=== PATIENT | female | born 1995 | race Caucasian/White ===

== ENCOUNTER 2021-07-07 12:27 | Emergency (ER) | payer OTHER ==
[2021-07-07] MEDS ORDERED: Zofran 4 MG/2 ML VIAL IV ONE (12:49)
[2021-07-07] MEDS ORDERED: TORAdol 30 mg Injection IV ONE (12:49)
[2021-07-07] MEDS ORDERED: Sodium Chloride 0.9% 1000 ML 1,000 ML IV STA (12:49)
[2021-07-07 12:51] VITALS: O2SAT 99
[2021-07-07] MEDS ORDERED: Zofran 4 MG/2 ML VIAL ONE (13:10)
[2021-07-07] MEDS ORDERED: Sodium Chloride 0.9% 1000 ML 1,000 ML ONE (13:11)
[2021-07-07] MEDS ORDERED: TORAdol 30 mg Injection ONE (13:11)
[2021-07-07 13:15] LABS: Absolute Neutrophil Ct (ANC) 3.75 (1.4-6.9); Basophil (Absolute #) 0.01 (0-0.4); Eosinophil % 1.9 % (0.00-5.0); Eosinophil (Absolute #) 0.11 (0-0.5); Hematocrit 41.8 % (35-47); Hemoglobin 13.6 gm/dl (12.0-16.0); Lymphocyte (Absolute #) 1.64 (1.0-4.6); Lymphocytes % 27.6 % (24.0-44.0); Mean Cell Volume 95.9 fl (78-100); Mean Corpuscular Hemoglobin 31.2 pg (26-32); Mean Corpuscular Hgb Concent. 32.5 g/dl (32-36); Mean Platelet Volume 11.4 fl (7.5-11.0); Monocyte (Absolute #) 0.43 (0.0-1.3); Monocytes % 7.2 % (0.0-12.0); Neutrophil % 63.1 % (36.0-66.0); Platelet Count 210 K/mm3 (150-450); Red Blood Count 4.36 M/mm3 (4.1-5.4); Red Cell Distribution Width 13.3 % (11.5-14.0); White Blood Count 5.9 K/mm3 (4.0-10.5)
[2021-07-07 13:22] LABS: ALBUMIN 4.2 g/dL (3.5-5.0); ALKALINE PHOSPHATASE 82 U/L (38-126); ANION GAP 10.3 MEQ/L (5-15); BLOOD UREA NITROGEN 7 mg/dL (7-17); CHLORIDE 108 mmol/L (98-107); Calcium 8.5 mg/dL (8.4-10.2); Carbon Dioxide 25 mmol/L (22-30); Creatinine 1 0.71 mg/dL (0.52-1.04); EST GLOMERULAR FILTRATION RATE > 60.0 ML/MIN; Glucose 116 mg/dL (74-106); LIPASE 128 U/L (23-300); Potassium 3.6 mmol/L (3.5-5.1); SGOT/AST 77 U/L (14-36); SGPT/ALT 90 U/L (0-35); SODIUM 139 mmol/L (137-145); Total Protein 7.4 g/dL (6.3-8.2)
[2021-07-07] MEDS ORDERED: DECADRON 10MG INJ. IV ONE (14:08)
[2021-07-07] MEDS ORDERED: BENADRYL 50 MG/ML IV ONE (14:08)
[2021-07-07] MEDS ORDERED: BENADRYL 50 MG/ML ONE (14:21)
[2021-07-07] MEDS ORDERED: DECADRON 10MG INJ. ONE (14:21)
--- NOTE | 2021-07-07 15:49 | ERPHSYRPT ---
- History of Present Illness Time Seen by Provider: 07/07/21 13:28 Source: patient Exam Limitations: no limitations Patient Subjective Stated Complaint: Symtoms started on thursday07/02/21 with chest pain, shortness of breath fever, severe back pain, and fever. Sharp chest pain today and covid test today. Triage Nursing Assessment: Patient to ed with chest pain that has worsened today. PAtient states she is covid positive. Patient is having chest pain at this time rating it at a 7. Patient states her chest pain has "spikes" where she experiences sharp pain. Physician History: Location: chest pain Quality: "sharp twinges" Radiation: none Severity: moderate Duration: 2-3 days Timing: gradual Modifying factors/associated signs and symptoms: unvaccinated against covid with a positive home test. Patient describes sharp twinges that have been going on for the past day or 2. States that she has not been vaccinated against COVID. With a positive COVID test at home. Timing/Duration: today Severity: moderate Associated Symptoms: denies symptoms, abdominal pain Allergies/Adverse Reactions: Sulfa (Sulfonamide Antibiotics) Allergy (Mild, Verified 07/07/21 12:51) Hx Tetanus, Diphtheria Vaccination/Date Given: Yes Hx Influenza Vaccination/Date Given: No Hx Pneumococcal Vaccination/Date Given: No Immunizations Up to Date: Yes Travel Risk - International Travel Have you traveled outside of the country in past 3 weeks: No - Coronavirus Screening Are you exhibiting any of the following symptoms?: Yes Symptoms: Fever, Headaches/Body Aches/Fatigue - Vaccine Status Have you recieved a Covid-19 vaccination: No - Review of Systems Constitutional: No Symptoms, No Fever, No Chills Eyes: No Symptoms Ears, Nose, & Throat: No Symptoms Respiratory: Cough, No Dyspnea Cardiac: Chest Pain, No Edema, No Syncope Abdominal/Gastrointestinal: No Abdominal Pain, No Nausea, No Vomiting, No Diarrhea Genitourinary Symptoms: No Dysuria Musculoskeletal: No Back Pain, No Neck Pain Skin: No Rash Neurological: No Dizziness, No Focal Weakness, No Sensory Changes Psychological: No Symptoms Endocrine: No Symptoms All Other Systems: Reviewed and Negative - Past Medical History Pertinent Past Medical History: No - Past Surgical History Past Surgical History: Yes Other Surgical History: dental- tooth extraction - Social History Smoking Status: Current some day smoker How long have you smoked: 5 years Exposure to second hand smoke: No Drug Use: none Patient Lives Alone: No - Female History Hx Last Menstrual Period: 06/17/21 Hx Now: No - Nursing Vital Signs Nursing Vital Signs: Initial Vital Signs Temperature 98 F 07/07/21 12:37 Pulse Rate 104 H 07/07/21 12:37 Respiratory Rate 25 H 07/07/21 12:37 O2 Sat by Pulse Oximetry 99 07/07/21 12:37 Pain Scale Pain Intensity 4 - Physical Exam General Appearance: no apparent distress, alert Eye Exam: PERRL/EOMI, eyes nml inspection Ears, Nose, Throat Exam: normal ENT inspection, TMs normal, pharynx normal, moist mucous membranes Neck Exam: normal inspection, non-tender, supple, full range of motion Respiratory Exam: normal breath sounds, lungs clear, No respiratory distress Cardiovascular Exam: regular rate/rhythm, normal heart sounds, normal peripheral pulses Gastrointestinal/Abdomen Exam: soft, normal bowel sounds, No tenderness, No mass Back Exam: normal inspection, normal range of motion, No CVA tenderness, No vertebral tenderness Extremity Exam: normal inspection, normal range of motion, pelvis stable Neurologic Exam: alert, oriented x 3, cooperative, normal mood/affect, nml cerebellar function, nml station & gait, sensation nml, No motor deficits Skin Exam: normal color, warm, dry, No rash Lymphatic Exam: No adenopathy SpO2 Interpretation: normal SpO2: 99 - Course Nursing assessment & vital signs reviewed: Yes EKG Interpreted by Me: Sinus Rhythm Ordered Tests: Active Orders 24 hr Category Date Time Status EKG-ER Only STAT Care 07/07/21 12:49 Completed IV Insertion STAT Care 07/07/21 12:49 Completed CHEST 1 VIEW (PORTABLE) Stat Exams 07/07/21 12:56 Taken CHEST WITH CONTRAST [CT] Stat Exams 07/07/21 14:20 Taken CBC W DIFF Stat Lab 07/07/21 13:05 Completed CMP Stat Lab 07/07/21 13:05 Completed D-DIMER QUANTITATIVE Stat Lab 07/07/21 13:05 Completed HCG,QUALITATIVE URINE Stat Lab 07/07/21 15:46 Completed LIPASE Stat Lab 07/07/21 13:05 Completed TROPONIN Q3H Lab 07/07/21 13:05 Completed TROPONIN Q3H Lab 07/07/21 16:16 Completed UA W/RFX UR CULTURE Stat Lab 07/07/21 15:46 Completed Medication Summary Discontinued Medications Generic Name Dose Route Start Last Admin Trade Name Hernando PRN Reason Stop Dose Admin Dexamethasone Sodium Phosphate 8 mg 07/07/21 14:08 07/07/21 14:22 Dexamethasone Sod Phosphate 10 Mg/Ml IV 07/07/21 14:09 8 mg STAT ONE Administration Dexamethasone Sodium Phosphate Confirm 07/07/21 14:21 Dexamethasone Sod Phosphate 10 Mg/Ml Administered 07/07/21 14:22 Dose 10 mg .ROUTE .STK-MED ONE Diphenhydramine HCl 25 mg 07/07/21 14:08 07/07/21 14:23 Diphenhydramine Hcl 50 Mg/Ml Vial IV 07/07/21 14:09 25 mg STAT ONE Administration Diphenhydramine HCl Confirm 07/07/21 14:21 Diphenhydramine Hcl 50 Mg/Ml Vial Administered 07/07/21 14:22 Dose 50 mg .ROUTE .STK-MED ONE Sodium Chloride 1,000 mls @ 999 mls/hr 07/07/21 12:49 07/07/21 14:33 Sodium Chloride 0.9% 1000 Ml IV 07/07/21 13:49 Infused .Q1H1M STA Infusion Sodium Chloride Confirm 07/07/21 13:11 Sodium Chloride 0.9% 1000 Ml Administered 07/07/21 13:12 Dose 1,000 mls @ ud .ROUTE .STK-MED ONE Ketorolac Tromethamine 30 mg 07/07/21 12:49 07/07/21 13:13 Ketorolac Tromethamine 30 Mg/Ml Inj IV 07/07/21 12:50 30 mg STAT ONE Administration Ketorolac Tromethamine Confirm 07/07/21 13:11 Ketorolac Tromethamine 30 Mg/Ml Inj Administered 07/07/21 13:12 Dose 30 mg .ROUTE .STK-MED ONE Ondansetron HCl 4 mg 07/07/21 12:49 07/07/21 13:13 Ondansetron Hcl 4 Mg/2 Ml Vial IV 07/07/21 12:50 4 mg STAT ONE Administration Ondansetron HCl Confirm 07/07/21 13:10 Ondansetron Hcl 4 Mg/2 Ml Vial Administered 07/07/21 13:11 Dose 4 mg .ROUTE .STK-MED ONE Lab/Rad Data: Laboratory Result Diagrams 07/07/21 13:05 07/07/21 13:05 Laboratory Results 07/07/21 07/07/21 07/07/21 Range/Units 16:16 15:46 15:46 WBC (4.0-10.5) K/mm3 RBC (4.1-5.4) M/mm3 Hgb (12.0-16.0) gm/dl Hct (35-47) % MCV (78-100) fl MCH (26-32) pg MCHC (32-36) g/dl RDW (11.5-14.0) % Plt Count (150-450) K/mm3 MPV (7.5-11.0) fl Gran % (36.0-66.0) % Eos # (Auto) (0-0.5) Absolute Lymphs (auto) (1.0-4.6) Absolute Monos (auto) (0.0-1.3) Lymphocytes % (24.0-44.0) % Monocytes % (0.0-12.0) % Eosinophils % (0.00-5.0) % Basophils % (0.0-0.4) % Absolute Granulocytes (1.4-6.9) Basophils # (0-0.4) D-Dimer (215-500) ng/mL Sodium (137-145) mmol/L Potassium (3.5-5.1) mmol/L Chloride (98-107) mmol/L Carbon Dioxide (22-30) mmol/L Anion Gap (5-15) MEQ/L BUN (7-17) mg/dL Creatinine (0.52-1.04) mg/dL Estimated GFR ML/MIN Glucose (74-106) mg/dL Calcium (8.4-10.2) mg/dL Total Bilirubin (0.2-1.3) mg/dL AST (14-36) U/L ALT (0-35) U/L Alkaline Phosphatase (38-126) U/L Troponin I < 0.012 (0.000-0.034) ng/mL Serum Total Protein (6.3-8.2) g/dL Albumin (3.5-5.0) g/dL Lipase (23-300) U/L Urine Color YELLOW (YELLOW) Urine Appearance SLIGHTLY CLOUDY (CLEAR) Urine pH 6.0 (5-6) Ur Specific Ace 1.015 (1.005-1.025) Urine Protein NEGATIVE (Negative) Urine Ketones NEGATIVE (NEGATIVE) Urine Blood NEGATIVE (0-5) Eduin/ul Urine Nitrite NEGATIVE (NEGATIVE) Urine Bilirubin NEGATIVE (NEGATIVE) Urine Urobilinogen NEGATIVE (0-1) mg/dL Ur Leukocyte Esterase NEGATIVE (NEGATIVE) Urine WBC (Auto) 0-2 (0-5) /HPF Urine RBC (Auto) NONE SEEN (0-2) /HPF U Epithel Cells (Auto) RARE (FEW) /HPF Urine Bacteria (Auto) NONE SEEN (NEGATIVE) /HPF Urine Mucus (Auto) SLIGHT (NEGATIVE) /HPF Urine Culture Reflexed NO (NO) Urine Glucose NEGATIVE (NEGATIVE) mg/dL Urine HCG, Qual NEGATIVE (Negative) 07/07/21 07/07/21 07/07/21 Range/Units 13:05 13:05 13:05 WBC (4.0-10.5) K/mm3 RBC (4.1-5.4) M/mm3 Hgb (12.0-16.0) gm/dl Hct (35-47) % MCV (78-100) fl MCH (26-32) pg MCHC (32-36) g/dl RDW (11.5-14.0) % Plt Count (150-450) K/mm3 MPV (7.5-11.0) fl Gran % (36.0-66.0) % Eos # (Auto) (0-0.5) Absolute Lymphs (auto) (1.0-4.6) Absolute Monos (auto) (0.0-1.3) Lymphocytes % (24.0-44.0) % Monocytes % (0.0-12.0) % Eosinophils % (0.00-5.0) % Basophils % (0.0-0.4) % Absolute Granulocytes (1.4-6.9) Basophils # (0-0.4) D-Dimer 916 H* (215-500) ng/mL Sodium 139 (137-145) mmol/L Potassium 3.6 (3.5-5.1) mmol/L Chloride 108 H (98-107) mmol/L Carbon Dioxide 25 (22-30) mmol/L Anion Gap 10.3 (5-15) MEQ/L BUN 7 (7-17) mg/dL Creatinine 0.71 (0.52-1.04) mg/dL Estimated GFR > 60.0 ML/MIN Glucose 116 H (74-106) mg/dL Calcium 8.5 (8.4-10.2) mg/dL Total Bilirubin 0.30 (0.2-1.3) mg/dL AST 77 H (14-36) U/L ALT 90 H (0-35) U/L Alkaline Phosphatase 82 (38-126) U/L Troponin I < 0.012 (0.000-0.034) ng/mL Serum Total Protein 7.4 (6.3-8.2) g/dL Albumin 4.2 (3.5-5.0) g/dL Lipase 128 (23-300) U/L Urine Color (YELLOW) Urine Appearance (CLEAR) Urine pH (5-6) Ur Specific Ace (1.005-1.025) Urine Protein (Negative) Urine Ketones (NEGATIVE) Urine Blood (0-5) Eduin/ul Urine Nitrite (NEGATIVE) Urine Bilirubin (NEGATIVE) Urine Urobilinogen (0-1) mg/dL Ur Leukocyte Esterase (NEGATIVE) Urine WBC (Auto) (0-5) /HPF Urine RBC (Auto) (0-2) /HPF U Epithel Cells (Auto) (FEW) /HPF Urine Bacteria (Auto) (NEGATIVE) /HPF Urine Mucus (Auto) (NEGATIVE) /HPF Urine Culture Reflexed (NO) Urine Glucose (NEGATIVE) mg/dL Urine HCG, Qual (Negative) 07/07/21 Range/Units 13:05 WBC 5.9 (4.0-10.5) K/mm3 RBC 4.36 (4.1-5.4) M/mm3 Hgb 13.6 (12.0-16.0) gm/dl Hct 41.8 (35-47) % MCV 95.9 (78-100) fl MCH 31.2 (26-32) pg MCHC 32.5 (32-36) g/dl RDW 13.3 (11.5-14.0) % Plt Count 210 (150-450) K/mm3 MPV 11.4 H (7.5-11.0) fl Gran % 63.1 (36.0-66.0) % Eos # (Auto) 0.11 (0-0.5) Absolute Lymphs (auto) 1.64 (1.0-4.6) Absolute Monos (auto) 0.43 (0.0-1.3) Lymphocytes % 27.6 (24.0-44.0) % Monocytes % 7.2 (0.0-12.0) % Eosinophils % 1.9 (0.00-5.0) % Basophils % 0.2 (0.0-0.4) % Absolute Granulocytes 3.75 (1.4-6.9) Basophils # 0.01 (0-0.4) D-Dimer (215-500) ng/mL Sodium (137-145) mmol/L Potassium (3.5-5.1) mmol/L Chloride (98-107) mmol/L Carbon Dioxide (22-30) mmol/L Anion Gap (5-15) MEQ/L BUN (7-17) mg/dL Creatinine (0.52-1.04) mg/dL Estimated GFR ML/MIN Glucose (74-106) mg/dL Calcium (8.4-10.2) mg/dL Total Bilirubin (0.2-1.3) mg/dL AST (14-36) U/L ALT (0-35) U/L Alkaline Phosphatase (38-126) U/L Troponin I (0.000-0.034) ng/mL Serum Total Protein (6.3-8.2) g/dL Albumin (3.5-5.0) g/dL Lipase (23-300) U/L Urine Color (YELLOW) Urine Appearance (CLEAR) Urine pH (5-6) Ur Specific Ace (1.005-1.025) Urine Protein (Negative) Urine Ketones (NEGATIVE) Urine Blood (0-5) Eduin/ul Urine Nitrite (NEGATIVE) Urine Bilirubin (NEGATIVE) Urine Urobilinogen (0-1) mg/dL Ur Leukocyte Esterase (NEGATIVE) Urine WBC (Auto) (0-5) /HPF Urine RBC (Auto) (0-2) /HPF U Epithel Cells (Auto) (FEW) /HPF Urine Bacteria (Auto) (NEGATIVE) /HPF Urine Mucus (Auto) (NEGATIVE) /HPF Urine Culture Reflexed (NO) Urine Glucose (NEGATIVE) mg/dL Urine HCG, Qual (Negative) - Progress Progress: improved Progress Note: 07/07/21 17:17 Differential diagnosis includes STEMI, pneumonia, pulmonary embolism, COVID- pneumonia, viral illness We'll obtain basic labs, fluids, EKG, troponin, chest x-ray - I feel comfortable with one time negative troponin given symptoms have improved and started greater then 6 hours ago. - EKG shows no ST changes - my read. See full read below. - O2 saturations consistently greater than 95%. - CXR shows no pneumonia, pneumothorax - my read D-dimer was elevated. Therefore a CTA chest was obtained. This demonstrated no pulmonary embolism. Patient overall feels improved. Most likely COVID pleurisy causing chest pain today. Patient will need close follow-up with PCP. Return here for any new or changing symptoms. Plan of care was discussed with patient and all questions answered. The patient is agreeable to be discharged home and both verbal and printed discharge instructions were provided.The patient agreed to seek outpatient follow up as discussed. The patient was given strict instructions to return to the emergency department for worsening symptoms or any other emergent concerns. The patient verbalized understanding. Counseled pt/family regarding: lab results, diagnosis, need for follow-up - Departure Departure Disposition: Home Clinical Impression: COVID-19 Condition: Stable Critical Care Time: No Referrals: DOCTOR,NO FAMILY [Primary Care Provider] - Follow up/PCP as directed Instructions: Chest Pain (DC) Additional Instructions: Your work-up was largely unremarkable today. No obvious cause for your symptoms. Your urinalysis was negative. No signs of a pulmonary embolism on your CT scan. Plan for close follow-up with your PCP. You should return here immediately for any new or changing symptoms.
[2021-07-07 15:56] LABS: Appearance SLIGHTLY CLOUDY (CLEAR); Bilirubin NEGATIVE (NEGATIVE); Blood NEGATIVE Ery/ul (0-5); Epithelial Cells RARE /HPF (FEW); Glucose NEGATIVE (NEGATIVE); Ketones NEGATIVE (NEGATIVE); Leukocyte Esterase NEGATIVE (NEGATIVE); Mucus SLIGHT /HPF (NEGATIVE); Nitrite NEGATIVE (NEGATIVE); Protein,Urine Dip NEGATIVE (Negative); Specific Gravity 1.015 (1.005-1.025); Urobilinogen NEGATIVE mg/dL (0-1); WBC 0-2 /HPF (0-5)
[2021-07-07 16:34] LABS: Bacteria NONE SEEN /HPF (NEGATIVE); RBC NONE SEEN /HPF (0-2)
[2021-07-07 17:03] VITALS: BP 112/68; PULSE 72
--- NOTE | 2021-07-07 18:26 | XRAY ---
Indication: Short of breath and chest pain. Elevated d-dimer. Positive Covid 19. Multiple contiguous axial images obtained through the chest using 80 cc Isovue 370 contrast and PE protocol. Comparison: None There is good opacification of the pulmonary arteries to include the lobar and segmental branches. No pulmonary embolus. Heart not enlarged. Aorta is normal in course and caliber. No pathologic mediastinal/hilar lymphadenopathy. Lungs demonstrate minimal bilateral dependent atelectasis. No suspicious pulmonary mass, infiltrate, consolidation, or effusion. Bony thorax intact. Limited upper abdomen demonstrates fatty liver. Impression: 1. Negative pulmonary embolus. No acute cardiopulmonary abnormalities. 2. Incidental fatty liver. Comment: Preliminary interpretation may by C. No critical discrepancy.
--- NOTE | 2021-07-07 18:26 | XRAY ---
Indication: Short of breath and chest pain. Suspect Covid 19. Comparison: None Portable chest demonstrates normal heart, lungs, and bony thorax.
== END 2021-07-07 17:03 | disposition home or self-care (01) ==
LOC: ED 12:27
DX: U07.1 COVID-19 (principal); R07.9 Chest pain, unspecified; R05.9 Cough, unspecified; Z72.0 Tobacco use
CPT/HCPCS: 36000; 36415; 71045; 71260; 80053; 81001; 83690; 84484; 84703; 85025; 85379; 93005; 96360; 96374; 99284; U0003; J1100; J1200; J1885; J2405